=== PATIENT | female | born 1975 | race Caucasian/White ===

== ENCOUNTER 2021-06-07 21:51 | Emergency (ER) | payer OTHER ==
[~2021-06-07] VITALS: Ht 160 cm; Wt 54.4 kg
[2021-06-07] MEDS ORDERED: IRON18 M1 PO ×2 (22:00→22:01)
[2021-06-07] MEDS ORDERED: B12 ACTIVE1000 MCG PO (22:01)
[2021-06-07 22:14] LABS: URINE BILIRUBIN NEGATIVE (Negative); URINE BLOOD 2+ (Negative); URINE CLARITY CLEAR; URINE COLOR YELLOW; URINE GLUCOSE-RANDOM* NEGATIVE (Negative); URINE KETONES NEGATIVE (Negative); URINE LEUKOCYTES-REFLEX 1+ (Negative); URINE NITRITE-REFLEX NEGATIVE (Negative); URINE PROTEIN (DIPSTICK) NEGATIVE (Negative); URINE UROBILINOGEN 0.2 E.U./dl (0.2-1.0)
[2021-06-07 22:22] LABS: SQUAMOUS >10 Many /LPF (0-3)
[2021-06-07 22:23] LABS: ABSOLUTE NEUTROPHILS 5.1 thou/uL (1.4-8.2); BASOPHILS 1.8 % (0.0-2.0); EOSINOPHILS 3.3 % (0.0-3.0); HEMATOCRIT 32.3 % (37.0-47.0); LYMPHOCYTES 21.4 % (24.0-44.0); MCH 24.5 pg (26.0-34.0); MCHC 30.9 g/dL (28.0-37.0); MCV 79.3 fL (80.0-100.0); PLATELET COUNT 431 thou/uL (150-400); POLYS 64.5 % (36.0-66.0); RBC 4.08 mil/uL (4.20-5.00); RDW 35.7 % (10.5-14.5); WBC 7.9 thou/uL (4.0-11.0)
[2021-06-07 22:23] LABS: BACTERIA-REFLEX 1-9 Few /HPF (None Seen); CASTS None Seen /LPF (None Seen); URINE RBC 3-10 Few /HPF (NONE SEEN); URINE WBC-REFLEX 6-15 Few /HPF (0-5)
[2021-06-07 22:24] LABS: CRYSTALS None Seen /LPF (None Seen)
[2021-06-07 22:46] LABS: CALCIUM 8.5 mg/dL (8.5-10.1); CREATININE 0.6 mg/dL (0.6-1.0); POTASSIUM 3.9 mmol/L (3.5-5.1)
[2021-06-07 22:52] LABS: ALBUMIN 3.6 g/dL (3.4-5.0); MAGNESIUM 2.1 mg/dL (1.8-2.4); TOTAL BILIRUBIN 0.2 mg/dL (0.2-1.0); TOTAL PROTEIN 7.5 g/dL (6.4-8.2)
[2021-06-07] MEDS ORDERED: CEPHALEXIN500 MG PO (22:58)
[2021-06-07 23:08] VITALS: BP 116/52
== END 2021-06-07 23:14 | disposition home or self-care (01) ==
LOC: ER 21:51
PROVIDERS: Emergency Medicine
DX: N39.0 Urinary tract infection, site not specified (principal); R53.83 Other fatigue; Z79.899 Other long term (current) drug therapy